=== PATIENT | female | born 1985 ===

== ENCOUNTER 2020-11-02 16:59 | Observation (INO) | payer OTHER ==
--- NOTE | 2020-11-02 18:00 | ED ---
General Adult HPI - General Chief complaint: Upper Respiratory Infection Stated complaint: COVID+ Time Seen by Provider: 11/02/20 17:00 Source: patient, EMS, old records reviewed Mode of arrival: EMS Limitations: no limitations - History of Present Illness Initial comments: Is a 35-year-old female with no past medical history who presents emergency department as a transfer from [facility] for abnormal computed tomography scan of the chest. The patient originally presented there for flulike symptoms for the last 5 days. The patient states that she's been having headaches, fevers and chills, sore throat, cough and some difficult he was breathing. She is unvaccinated for:. She presented to the emergency department [facility] where she was noted to be covert positive. She had a d-dimer that was elevated at 0.[address] angiogram was performed of her chest which showed findings that could be consistent with cold it or with septic emboli causing pneumonia. She was sent here for further evaluation of these findings. The patient states that she does not have any chest pain however has been having some difficulty with breathing. No nausea, vomiting or diarrhea. She otherwise states that she feels well. Blood work was reviewed from [facility] and did not show leukocytosis. Code was positive and d-dimer was mildly elevated. Respiratory blood work was unremarkable. Troponin was negative. - Related Data Home Medications Medication Instructions Recorded Confirmed Acetaminophen Tab [Tylenol] 650 mg PO Q4H PRN 11/02/20 11/02/20 Ibuprofen [Motrin Ib] 800 mg PO Q8H PRN 11/02/20 11/02/20 Allergies Allergy/AdvReac Type Severity Reaction Status Date / Time No Known Allergies Allergy Verified 11/02/20 17:21 Review of Systems ROS Statement: Those systems with pertinent positive or pertinent negative responses have been documented in the HPI. ROS Other: All systems not noted in ROS Statement are negative. Past Medical History Past Medical History: No Reported History History of Any Multi-Drug Resistant Organisms: None Reported Past Surgical History: Orthopedic Surgery Additional Past Surgical History / Comment(s): bilateral knee surgery, ACL, MCL, miniscus Past Psychological History: Bipolar, Depression, PTSD Smoking Status: Never smoker Past Alcohol Use History: Occasional Past Drug Use History: None Reported General Exam - General Exam Comments Initial Comments: Constitutional: Awake alert Appears comfortable Head: Normocephalic atraumatic Eyes: no conjunctival injection No scleral icterus EOMI Neck: No JVD Supple Heart: Regular rate rhythm normal S1-S2 no murmurs Lungs: Clear to auscultation bilaterally No wheezing No rales Abdomen: Soft nondistended nontender Extremities: Non edematous DP pulses intact Radial pulses intact Neuro: A&Ox3 No focal neurologic deficits Psych: Appropriate mood and affect Limitations: no limitations Course Vital Signs 11/02/20 17:13 Temperature 98.4 F Pulse Rate 69 Respiratory 16 Rate Blood Pressure 121/81 O2 Sat by Pulse 100 Oximetry - Reevaluation(s) Reevaluation #1: 11/02/20 17:[address] Fuentes regarding trying to get a stat echo done in the emergency department and possible discharge home with negative however he stated he would prefer to get blood cultures and echocardiogram revealed evaluate the patient and the morning. Patient we place in observation. Medical Decision Making - Medical Decision Making Is a 35-year-old female came for [facility] ER for an abnormal computed tomography scan showing possibility of septic emboli. No murmurs on exam.. Patient was afebrile. White count at [facility] was 4. I spoke with Dr. Fuentes who recommended echo in observation for his evaluation tomorrow. The patient was updated and agrees with plan of care. However I feel that the patient's findings are likely secondary to Covid pneumonia. Do not feel that she has endocarditis. We'll hold on antibiotics this time. Disposition Clinical Impression: COVID Disposition: ADMITTED IP TO THIS [facility] Condition: Stable Referrals: None,Stated [Primary Care Provider] - 1-2 days
[2020-11-02] MEDS ORDERED: NALOXONE 0.4 MG/ML 1 ML VIAL IV PRN (18:47)
[2020-11-02 19:25] LABS: Amphetamine Screen,Urine Not Detected (NotDetected); Barbiturate Screen,Urine Not Detected (NotDetected); Benzodiazepines Screen,Urine Not Detected (NotDetected); Cocaine Screen,Urine Not Detected (NotDetected); Methadone Screen, Urine Not Detected (NotDetected); Opiate Screen,Urine Not Detected (NotDetected); Phencyclidine Screen,Urine Not Detected (NotDetected); Tricyclic Antidepressant,Urine Not Detected (NotDetected); Urn Cannabinoid Scrn Not Detected (NotDetected)
[2020-11-02 19:26] LABS: Oxycodone Screen, Urine Not Detected (NotDetected)
[2020-11-02] MEDS: ACETAMINOPHEN TAB 325 MG TAB PO PRN (19:33)
--- NOTE | 2020-11-03 00:57 | P.HPIM ---
History of Present Illness H&P Date: 11/02/20 Chief Complaint: Covid positive 35-year-old female no significant past medical history Patient is a transfer from [facility] she went there today because of 5 day history of upper respiratory symptoms she described it like flulike symptoms generalized body aches with fevers chills headaches sore throat and coughing and shortness of breath she wanted to get tested for Covid so she went to the hospital and she positive. However she was not hypoxic denies any loss of smell or taste sensation denies any diarrhea denies any syncope or dizziness. Part of the workup she had a positive d-dimer for which CTA of the chest was done that showed nodular appearing infiltrates with central cavitation for which she was transferred to our facility to rule out any embolic vegetation disease Upon arrival to our ED her blood work was reviewed showed normal white count Covid positive d-dimer slightly elevated 0.56 Potassium was 3.8 lactic acid 0.7 troponins are negative Echocardiogram was done to see if there is any valvular vegetations or thrombus in the heart that would explain possible septic emboli to the lungs. However this will be read tomorrow by cardiology and patient was admitted for observation overnight Again upon interviewing the patient she feels fine at this time she is not hypoxic Urine drug screen was negative EKG showed normal sinus Patient denies any drug abuse smoking or excessive alcohol use Patient is unvaccinated Covid, she is unaware of any positive sick contact with Covid. She denies any recent travel Review of Systems Pertinent positives as noted in HPI. All other systems were reviewed and are negative Past Medical History Past Medical History: No Reported History History of Any Multi-Drug Resistant Organisms: None Reported Past Surgical History: Orthopedic Surgery Additional Past Surgical History / Comment(s): bilateral knee surgery, ACL, MCL, miniscus Past Psychological History: Bipolar, Depression, PTSD Smoking Status: Never smoker Past Alcohol Use History: Occasional Past Drug Use History: None Reported - Past Family History Family Family Medical History: No Reported History Medications and Allergies Home Medications Medication Instructions Recorded Confirmed Type Acetaminophen Tab [Tylenol] 650 mg PO Q4H PRN 11/02/20 11/02/20 History Ibuprofen [Motrin Ib] 800 mg PO Q8H PRN 11/02/20 11/02/20 History Allergies Allergy/AdvReac Type Severity Reaction Status Date / Time No Known Allergies Allergy Verified 11/02/20 17:21 Physical Exam Vitals: Vital Signs Temp Pulse Resp BP Pulse Ox 11/02/20 18:30 99.5 F 78 16 109/72 98 11/02/20 18:00 16 11/02/20 17:13 98.4 F 69 16 121/81 100 Intake and Output 11/02/20 11/02/20 11/02/20 06:59 14:59 22:59 Other: Weight 74.843 kg Constitutional: No acute distress, conversant, pleasant Eyes: Anicteric sclerae, moist conjunctiva, Pupils equal round reactive to light ENMT: NC/AT Oropharynx clear, no erythema, or exudates Neck: Supple, FROM, no masses, or JVD No carotid bruits No thyromegaly Lungs: Clear to auscultation Clear to percussion Normal respiratory effort, no accessory muscle use Cardiovascular: Heart regular in rate and rhythm, No murmurs, gallops, or rubs No peripheral edema Abdominal: Soft Nontender, no guarding, rebound or rigidity Abdomen moving with respiration Normoactive bowel sounds No hepatomegaly, No splenomegaly No palpable mass No abdominal wall hernia noted Skin: Normal temperature, tone, texture, turgor No induration No subcutaneous nodules No rash, lesions No ulcers Extremities: No digital cyanosis No clubbing Pedal pulses intact and symmetrical Radial pulses intact and symmetrical No calf tenderness Psychiatric: Alert and oriented to person, place and time Appropriate affect fair judgement Neuro Muscles Strength 5/5 in all 4 extremities Sensation to light touch grossly present throughout Cranial nerves II-XII grossly intact No focal sensory deficits Lymphatics: no palpable cervical or supraclavicular , or inguinal lymph nodes Assessment and Plan Assessment: COVID pneumonitis Monitor oxygen requirement currently patient not hypoxic Symptomatic control Heparin subcu 3 times a day Pain control with Tylenol Droplet precautions Troponins are negative Lactic acid within normal limits Check LDH, CRP, ferritin for prognostic evaluation CT of the chest showed nodular appearing infiltrates with central cavitation patient was transferred to our facility to rule out septic emboli Echocardiogram of the heart was done to rule out any thrombus or valvular vegetation Await cardiology input Continue supportive care Patient did not qualify for around a severe or dexamethasone Upon discharge monitor for any oxygen requirement at home if symptoms gets worse or becomes hypoxic consider returning to the hospital Thorough review of medical records sent from [facility] as summarized in HPI and above CODE STATUS: Full code DVT prophylaxis: Heparin subcu 3 times a day Discussed with: Patient, ER Anticipated length of stay less than than [address]: Home A total of 65minutes was spent on the care of this complex patient more than 50% of the time was spent in counseling and care coordination.
--- NOTE | 2020-11-03 07:30 | ECHOF ---
Referral Reason:Eval for endocarditis MEASUREMENTS -------- HEIGHT: 165.1 cm WEIGHT: 74.8 kg BP: 121/81 RVIDd: 2.9 cm (< 3.3) IVSd: 1.1 cm (0.6 - 1.1) LVIDd: 4.3 cm (3.9 - 5.3) LVPWd: 1.1 cm (0.6 - 1.1) IVSs: 1.6 cm LVIDs: 2.7 cm LVPWs: 1.5 cm LA Diam: 3.0 cm (2.7 - 3.8) LAESV Index (A-L): 18.34 ml/m Ao Diam: 3.5 cm (2.0 - 3.7) AV Cusp: 1.9 cm (1.5 - 2.6) MV EXCURSION: 13.784 mm (> 18.000) MV EF SLOPE: 62 mm/s (70 - 150) EPSS: 0.6 cm MV E Naren: 1.07 m/s MV DecT: 198 ms MV A Naren: 0.54 m/s MV E/A Ratio: 1.99 RAP: 5.00 mmHg RVSP: 23.03 mmHg FINDINGS -------- Sinus rhythm. This was a technically good study. The left ventricular size is normal. There is borderline concentric left ventricular hypertrophy. Overall left ventricular systolic function is normal with, an EF between 60 - 65 %. The right ventricle is normal in size. Normal LA size by volume 22+/-6 ml/m2. The right atrium is normal in size. Interatrial and interventricular septum intact. The aortic valve is trileaflet, and appears structurally normal. No aortic stenosis or regurgitation. The mitral valve is normal. Mild tricuspid regurgitation present. Right ventricular systolic pressure is normal at < 35 mmHg. Trace/mild (physiologic) pulmonic regurgitation. The aortic root size is normal. Normal inferior vena cava with normal inspiratory collapse consistent with estimated right atrial pre ssure of 5 mmHg. There is no pericardial effusion. CONCLUSIONS -------- 1. The left ventricular size is normal. 2. There is borderline concentric left ventricular hypertrophy. 3. Overall left ventricular systolic function is normal with, an EF between 60 - 65 %. 4. The aortic valve is trileaflet, and appears structurally normal. No aortic stenosis or regurgitati on. 5. Mild tricuspid regurgitation present. 6. Trace/mild (physiologic) pulmonic regurgitation. 7. There is no pericardial effusion. 8. No vegetations noted. CHEMIST INORGANIC: MARTY Yoo
[2020-11-03] MEDS ORDERED: HEPARIN SODIUM,PORCINE/PF 5,000 UNIT/0.5 ML SYRINGE SQ SCH (08:00)
[2020-11-03] MEDS: ACETAMINOPHEN TAB 325 MG TAB PO PRN (08:20)
--- NOTE | 2020-11-03 10:13 | P.CRDCN ---
History of Present Illness History of present illness: HISTORY OF PRESENTING ILLNESS This is a pleasant 35-year-old female with no significant past medical history. She denies prior history of coronary artery disease and does not follow in the office with a credentialer. We have been asked to see in consultation for abnormal computed tomography scan. She presented to [facility] with symptoms of fever, chills, cough and shortness of breath. She was subsequently diagnosed with COVID-19. She underwent a computed tomography scan revealing bilateral infiltrates with possible septic emboli. She was transferred here for further cardiac evaluation. An echocardiogram was obtained revealing preserved LV systolic function with ejection fraction 55-60% with no evidence of vegetation or pericardial effusions. She is seen and examined resting currently sitting up eating breakfast in no acute distress. She denies symptoms of chest discomfort. She continues to feel fatigued and short of breath. EKG reveals sinus mechanism heart rate of [address] or T wave abnormalities noted. Laboratory data reviewed, white count 4, hemoglobin 15, platelets 131, sodium 138, potassium 3.8 creatinine 0.6. REVIEW OF SYSTEMS At the time of my exam: CONSTITUTIONAL: Denies fever or chills. CARDIOVASCULAR: Denies chest pain, shortness of breath, orthopnea, PND or palpitations. RESPIRATORY: Denies cough. GASTROINTESTINAL: Denies abdominal pain, diarrhea, constipation, nausea or vomiting. MUSCULOSKELETAL: Denies myalgias. NEUROLOGIC: Denies numbness, tingling, headache or weakness. ENDOCRINE: Denies fatigue, weight change, polydipsia or polyurina. GENITOURINARY: Denies burning, hematuria or urgency with micturation. HEMATOLOGIC: Denies history of anemia or bleeding. PHYSICAL EXAMINATION Blood pressure 115/78 heart rate 68 afebrile and maintaining oxygen saturation on room air. CONSTITUTIONAL: No apparent distress. HEENT: Head is normocephalic. Pupils are equal, round. Sclerae anicteric. Mucous membranes of the mouth are moist. No JVD. No carotid bruit. CHEST EXAMINATION: Lungs are clear to auscultation. No chest wall tenderness is noted on palpation or with deep breathing. HEART EXAMINATION: Regular rate and rhythm. S1, S2 heard. No murmurs, gallops or rub. ABDOMEN: Soft, nontender. EXTREMITIES: 2+ peripheral pulses, no lower extremity edema and no calf tenderness. NEUROLOGIC EXAMINATION: Patient is awake, alert and oriented x3. ASSESSMENT COVID-19 Covid pneumonia PLAN No evidence to suggest endocarditis or pericarditis on echocardiogram. Ongoing medical management and treatment of underlying COVID-19. No further cardiac intervention required. We will follow along as needed, thank you kindly for this consultation. Nurse Practitioner note has been reviewed, I agree with a documented findings and plan of care. Patient was seen and examined. Past Medical History Past Medical History: No Reported History History of Any Multi-Drug Resistant Organisms: None Reported Past Surgical History: Orthopedic Surgery Additional Past Surgical History / Comment(s): bilateral knee surgery, ACL, MCL, miniscus Past Psychological History: Bipolar, Depression, PTSD Smoking Status: Never smoker Past Alcohol Use History: Occasional Past Drug Use History: None Reported - Past Family History Family Family Medical History: No Reported History Medications and Allergies Home Medications Medication Instructions Recorded Confirmed Type Acetaminophen Tab [Tylenol] 650 mg PO Q4H PRN 11/02/20 11/02/20 History Ibuprofen [Motrin Ib] 800 mg PO Q8H PRN 11/02/20 11/02/20 History Allergies Allergy/AdvReac Type Severity Reaction Status Date / Time No Known Allergies Allergy Verified 11/02/20 17:21 Physical Exam Vitals: Vital Signs Temp Pulse Resp BP Pulse Ox 11/03/20 08:22 68 18 115/78 98 11/03/20 06:38 18 11/03/20 05:30 18 11/03/20 04:10 99.0 F 73 18 114/73 98 11/03/20 00:20 98.0 F 70 18 116/74 98 11/02/20 18:30 99.5 F 78 16 109/72 98 11/02/20 18:00 16 11/02/20 17:13 98.4 F 69 16 121/81 100 Intake and Output 11/02/20 11/03/20 11/03/20 22:59 06:59 14:59 Other: Weight 74.843 kg Results Current Medications Generic Name Dose Route Start Last Admin Trade Name Freq PRN Reason Stop Dose Admin Acetaminophen 650 mg 11/02/20 18:47 11/03/20 08:20 Acetaminophen Tab 325 Mg Tab PO 650 mg Q6HR PRN Administration Mild Pain or Fever > 100.5 Heparin Sodium (Porcine) 5,000 unit 11/03/20 08:00 11/03/20 08:21 Heparin Sodium,Porcine/Pf 5,000 Unit/0.5 Ml Syringe SQ 5,000 unit Q8HR MAUREEN Administration Naloxone HCl 0.2 mg 11/02/20 18:47 Naloxone 0.4 Mg/Ml 1 Ml Vial IV Q2M PRN Opioid Reversal Intake and Output 11/02/20 11/03/20 11/03/20 22:59 06:59 14:59 Other: Weight 74.843 kg
[2020-11-03 11:13] LABS: Basophils # (A) 0.02 X 10*3/uL (0.00-0.10); Basophils % (A) 0.5 %; Eosinophils # (A) 0.02 X 10*3/uL (0.04-0.35); Eosinophils % (A) 0.5 %; HCT 42.5 % (37.2-46.3); HGB 13.8 g/dL (12.0-15.0); Lymphocytes # (A) 1.15 X 10*3/uL (0.90-5.00); Lymphocytes % (A) 30.1 %; MCHC 32.5 g/dL (32.0-37.0); MCV 95.5 fL (80.0-97.0); Mean Platelet Volume 12.2 fL (9.5-12.2); Monocytes # (A) 0.43 X 10*3/uL (0.20-1.00); Monocytes % (A) 11.3 %; Neutrophils # (A) 2.19 X 10*3/uL (1.80-7.70); Neutrophils % (A) 57.3 %; Platelet Count 112 X 10*3/uL (140-440); RBC 4.45 X 10*6/uL (4.10-5.20); WBC 3.82 X 10*3/uL (4.50-10.00)
[2020-11-03 12:38] VITALS: BP 116/87; PULSE 89; RESP 16; TEMP 98.2
[2020-11-03 13:50] LABS: Ferritin 355.7 ng/mL (10.0-291.0)
[2020-11-03 13:51] LABS: African American GFR (CKD) 137.8 (60.0-200.0); Albumin 3.7 g/dL (3.80-4.90); Albumin/Globulin Ratio 1.61 (1.60-3.17); Anion Gap 10.3 mmol/L (4.00-12.00); C Reactive Protein 2.2 mg/dL (0.0-0.8); Calcium 7.6 mg/dL (8.7-10.3); Carbon Dioxide 23.7 mmol/L (21.6-31.8); Globulin 2.3 g/dL (1.6-3.3); Non-African American GFR(CKD) 118.9 (60.0-200.0); Potassium 3.6 mmol/L (3.5-5.5); Total Bilirubin 0.3 mg/dL (0.3-1.2)
--- NOTE | 2020-11-03 15:25 | P.DS ---
Providers Date of admission: 11/02/20 18:48 Expected date of discharge: 11/03/20 Attending physician: Dedrick Hurtado MD Consults: 11/02/20 17:21 Consult Physician Routine Consulting Provider: Lazaro Yan Consult Reason/Comments: ?Endocarditis based on CT findings Do you want consulting provider notified?: Already Contacted Primary care physician: Stated None Hospital Course: COVID pneumonitis Cavitation in Lungs Patient was admitted with history of COVID due to findings of cavitation in lungs with concerns for septic emboli. Patient was not hypoxic, and had no s/s of acute infection. She was observed overnight with cardiology consult and echocardiogram. Echo did not show any evidence of vegitations. Cardiology cleared patient for discharge. BCx were drawn and pending at time of discharge. Pt d/c'd home with instructions to return to hospital if she becomes more short of breath, starts spiking fevers, or any other symptoms of concern for her. She was recommended to monitor oxygen level at home and to return if she became low in oxygen. Pt to quarantine at home given COVID + status. She will f/u with PCP. Assessment: Gen: awake, alert HEENT: normocephalic, atraumatic, good hearing acuity, moist mucous membranes Resp: good air exchange, breathing comfortably with no accessory muscle use CVS: good distal perfusion x 4, GI: soft, NTTP, ND : no SPT, no CVAT, groves catheter not present MSK: no pitting edema, no clubbing Neuro: non-focal, moving all extremities Psych: cooperative, euthymic mood Patient Condition at Discharge: Stable Plan - Discharge Summary New Discharge Prescriptions: Continue Acetaminophen Tab [Tylenol] 650 mg PO Q4H PRN PRN Reason: Fever Ibuprofen [Motrin Ib] 800 mg PO Q8H PRN PRN Reason: Fever Discharge Medication List Acetaminophen Tab [Tylenol] 650 mg PO Q4H PRN 11/02/20 [History] Ibuprofen [Motrin Ib] 800 mg PO Q8H PRN 11/02/20 [History] Follow up Appointment(s)/Referral(s): None,Stated [Primary Care Provider] - 1-2 days Patient Instructions/Handouts: Coronavirus Disease 2019 (COVID-19) Discharge Disposition: HOME SELF-CARE
== END 2020-11-03 12:38 | disposition home or self-care (01) ==
LOC: EC 16:59 → 6NMEDSUR 18:48
PROVIDERS: ADMIT Internal Medicine; ATTEND Internal Medicine
DX: U07.1 COVID-19 (principal); J12.82 Pneumonia due to coronavirus disease 2019; F32.9 Major depressive disorder, single episode, unspecified; F43.10 Post-traumatic stress disorder, unspecified; R93.1 Abnormal findings on diagnostic imaging of heart and coronary circulation
CPT/HCPCS: 99285; 96372; 36415; 93005; 93306; 80053; 82728; 83615; 85025; 86140; 81025; 87040; 80306; G0378 ×2; J1644

== ENCOUNTER → 2020-12-27 | Outpatient (CLI) | payer OTHER ==
--- NOTE | 2020-12-27 14:55 | XR ---
EXAMINATION TYPE: XR chest 2V DATE OF EXAM: 12/27/2020 COMPARISON: CTA chest 11/02/2020 HISTORY: Dyspnea TECHNIQUE: Frontal and lateral views of the chest are obtained. FINDINGS: There is no focal air space opacity, pleural effusion, or pneumothorax seen. The cardiac silhouette size is within normal limits. Metallic foreign body noted along the level of the cleavage The osseous structures are intact. IMPRESSION: No acute cardiopulmonary process. There has been interval improvement In the multifocal cavitary lesion seen within the lungs on previous exam suspicious for septic emboli .
== END | disposition home or self-care (01) ==
LOC: RADXRMAIN 12:07
PROVIDERS: ATTEND Physician Assistant
DX: R06.00 Dyspnea, unspecified (principal)
CPT/HCPCS: 71046

== ENCOUNTER 2021-07-13 17:19 | Emergency (ER) | payer OTHER ==
[2021-07-13 18:26] VITALS: BP 122/79; PULSE 72; RESP 16; TEMP 98.1
[2021-07-13 19:04] LABS: Basophils # (A) 0.1 k/uL (0-0.2); Basophils % (A) 1 %; Eosinophils # (A) 0.2 k/uL (0-0.7); Eosinophils % (A) 1 %; HCT 44.3 % (34.0-46.0); HGB 14.7 gm/dL (11.4-16.0); Lymphocytes # (A) 2.4 k/uL (1.0-4.8); Lymphocytes % (A) 16 %; MCH 33.6 pg (25.0-35.0); MCHC 33.3 g/dL (31.0-37.0); MCV 101.1 fL (80.0-100.0); Mean Platelet Volume 8.3; Monocytes # (A) 0.6 k/uL (0-1.0); Monocytes % (A) 4 %; Neutrophils # (A) 11.8 k/uL (1.3-7.7); Neutrophils % (A) 77 %; Platelet Count 292 k/uL (150-450); RBC 4.38 m/uL (3.80-5.40); RDW 12.8 % (11.5-15.5); WBC 15.3 k/uL (3.8-10.6)
[2021-07-13 19:11] LABS: ALT 34 U/L (4-34); AST 25 U/L (14-36); African American GFR (CKD) >90 (>60 ml/min/1.73 sqM); Albumin 4.3 g/dL (3.5-5.0); Alkaline Phosphatase 77 U/L (38-126); Anion Gap 7 mmol/L; Blood Urea Nitrogen 11 mg/dL (7-17); Calcium 8.9 mg/dL (8.4-10.2); Carbon Dioxide 25 mmol/L (22-30); Chloride 103 mmol/L (98-107); Glucose 88 mg/dL (74-99); Non-African American GFR(CKD) >90 (>60 ml/min/1.73 sqM); Potassium 3.9 mmol/L (3.5-5.1); Sodium 135 mmol/L (137-145); Total Bilirubin 0.4 mg/dL (0.2-1.3); Total Protein 7.5 g/dL (6.3-8.2)
== END 2021-07-13 23:22 | disposition left against medical advice (07) ==
LOC: EC 17:19
DX: Z53.21 Procedure and treatment not carried out due to patient leaving prior to being seen by health care provider (principal)
CPT/HCPCS: 36415; 80053; 81025; 85025; 99499

== ENCOUNTER 2022-02-22 06:15 | Inpatient (IN) | payer BC, OTHER ==
[2022-02-22] MEDS ORDERED: LIDOCAINE 0.5% (PF) 5 MG/ML (50 ML SDV) SQ PRN (06:41)
[2022-02-22] MEDS ORDERED: TERBUTALINE 1 MG/ML VIAL SQ PRN (06:41)
[2022-02-22] MEDS ORDERED: OXYTOCIN 30 UNITS/500 ML NS 30 UNIT in SALINE 1 500ML.BAG IV SCH ×2 (06:45→16:45)
[2022-02-22] MEDS: LACTATED RINGERS 1,000 ML IV SCH ×3 (06:56→13:07)
[2022-02-22 07:09] LABS: Basophils # (A) 0.1 k/uL (0-0.2); Basophils % (A) 0 %; Eosinophils # (A) 0.2 k/uL (0-0.7); Eosinophils % (A) 2 %; HCT 37.5 % (34.0-46.0); HGB 12.6 gm/dL (11.4-16.0); Lymphocytes # (A) 1.6 k/uL (1.0-4.8); Lymphocytes % (A) 14 %; MCH 31.3 pg (25.0-35.0); MCHC 33.7 g/dL (31.0-37.0); Mean Platelet Volume 10.4; Monocytes # (A) 0.5 k/uL (0-1.0); Monocytes % (A) 5 %; Neutrophils % (A) 77 %; Platelet Count 237 k/uL (150-450); RBC 4.03 m/uL (3.80-5.40); RDW 13.1 % (11.5-15.5); WBC 11.7 k/uL (3.8-10.6)
[2022-02-22] MEDS ORDERED: fentaNYL (PF) 50 MCG/ML 5 ML AMP ONE (11:06)
[2022-02-22] MEDS ORDERED: SODIUM CHLORIDE 0.9% 100 ML BAG ONE (11:06)
[2022-02-22] MEDS ORDERED: ROPIVACAINE 5 MG/ML 20 ML AMPULE ONE (11:06)
[2022-02-22] MEDS ORDERED: diphenhydrAMINE 25 MG CAP PO PRN (16:40)
[2022-02-22] MEDS ORDERED: HYDROCORTISONE 2.5% RECTAL CREAM 30 GM TUBE RECTAL PRN (16:40)
[2022-02-22] MEDS ORDERED: ZOLPIDEM 5 MG TAB PO PRN (16:40)
[2022-02-22] MEDS ORDERED: SIMETHICONE 80 MG CHEWABLE PO PRN (16:40)
[2022-02-22] MEDS ORDERED: BENZOCAINE/MENTHOL SPRAY 1 GM/SPRAY AEROSOL TOPICAL PRN (16:40)
[2022-02-22] MEDS ORDERED: ACETAMINOPHEN TAB 325 MG TAB PO PRN (16:40)
[2022-02-22] MEDS ORDERED: LANOLIN CREAM 5 GM TUBE TOPICAL PRN (16:40)
[2022-02-22] MEDS ORDERED: diphenhydrAMINE 50 MG CAP PO PRN (16:40)
[2022-02-22] MEDS ORDERED: diphenhydrAMINE 50 MG/ML 1 ML VIAL IVP PRN ×2 (16:40)
--- NOTE | 2022-02-22 16:44 | P.HPOB ---
History of Present Illness H&P Date: 02/22/22 Chief Complaint: IUP at 39 0/7 weeks This is a 36-year-old 3 para 1011 that presents for elective induction of labor. Patient has been receiving routine care with myself which is been essentially uncomplicated. Patient does have a history of depression and anxiety. Mental health has been stable throughout the . Patient does note good movement and occasional contraction. Patient denies loss of fluid or vaginal bleeding. On bloodwork this patient has a blood type of O+, rubella status nonimmune, hepatitis B surface antigen negative, HIV nonreactive, RPR is nonreactive, group beta strep cultures are negative. Review of Systems Constitutional: Denies chills, Denies fatigue, Denies fever Ears, nose, mouth and throat: Denies headache Cardiovascular: Reports leg edema Respiratory: Denies dyspnea Gastrointestinal: Denies nausea, Denies vomiting Genitourinary: Reports Past Medical History Past Medical History: No Reported History Additional Past Medical History / Comment(s): 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 History of Any Multi-Drug Resistant Organisms: None Reported Past Surgical History: Orthopedic Surgery Additional Past Surgical History / Comment(s): bilateral knee surgery, ACL, MCL, miniscus Past Anesthesia/Blood Transfusion Reactions: No Reported Reaction Past Psychological History: Bipolar, Depression, PTSD Smoking Status: Former smoker Past Alcohol Use History: Occasional Past Drug Use History: None Reported - Past Family History Family Family Medical History: No Reported History Medications and Allergies Home Medications Medication Instructions Recorded Confirmed Type Vit No.179/Iron/Folic 1 each PO 02/22/22 History [ Tablet] Sertraline [Zoloft] 50 02/22/22 History Allergies Allergy/AdvReac Type Severity Reaction Status Date / Time coconut Allergy Rash/Hives Verified 02/22/22 06:39 Exam Osteopathic Statement: *. No significant issues noted on an osteopathic structural exam other than those noted in the History and Physical/Consult. Vital Signs Temp Pulse Resp BP Pulse Ox 02/22/22 06:38 96.0 F L 91 16 134/87 93 L Intake and Output 02/22/22 02/22/22 02/22/22 06:59 14:59 22:59 Other: Weight 90.718 kg Targeted physical exam is performed in this date in general this is a well- nourished well-developed female in no acute distress, breathing is nonlabored heart has a regular rate and rhythm, abdomen is gravid and appropriate for gestational age, on cervical exam she is 1/70/-2 station amniotomy is performed and clear fluid is obtained. There noted to be category 1 and she is farrah every 2-3 minutes. Results Result Diagrams: 02/22/22 06:50 Abnormal Lab Results - Last 24 Hours (Table) 02/22/22 Range/Units 06:50 WBC 11.7 H (3.8-10.6) k/uL Neutrophils # 9.0 H (1.3-7.7) k/uL Assessment and Plan (1) Term Current Visit: Yes Status: Acute Code(s): Z34.90 - ENCNTR FOR SUPRVSN OF NORMAL , UNSP, UNSP TRIMESTER SNOMED Code(s): 45347393 Plan: 36-year-old 011 at 39-0/7 weeks, estimated due date of 03/01 presents for elective induction of labor. Patient is admitted and Pitocin induction of labor is begun per hospital protocol. Patient is offered options for analgesia including Stadol, nitrous, epidural. Patient will consider. Anticipate spontaneous vaginal delivery later today.
[2022-02-22] MEDS ORDERED: IBUPROFEN 600 MG TAB PO SCH (16:45)
--- NOTE | 2022-02-22 16:47 | P.PROBDLV ---
Vaginal Delivery Note - . Vaginal Delivery Note: 36-year-old 011 was admitted to labor and delivery today for elective induction of labor. She is admitted to labor and delivery for pitocin induction of labor. She underwent amniotomy and clear fluid was obtained. Patient progressed through labor eventually making minimal cervical change and requesting nitrous for pain control. Patient used nitrous for a short period was noted to make a small amount of cervical change and requested epidural. Epidural was placed without difficulty by the anesthesia department. Patient did progress to labor with category 2 heart tones on examination she was noted to be 7 cm which quickly progressed to complete. Patient was very comfortable with epidural with no urge to push. Patient labor down for a good amount of time eventually urge to push was felt and she began pushing. Patient began pushing and hands and knees secondary to variable decelerations and category 2 heart tones. Once patient was noted to be patient was placed on her back in a lithotomy position and with excellent maternal effort had a normal spontaneous vaginal delivery of a viable male at 1628, weight of 6 pounds 2.5 ounces. After two-minute delayed the umbo cord was doubly clamped and cut. The placenta was delivered spontaneously intact with three-vessel cord being noted. A spontaneous cry was noted at . Inspection the patient's vaginal vault no vaginal lacerations were appreciated. Uterus was noted to be firm and below the umbilicus. All counts were noted to be correct 2 at the end of the delivery. Patient and infant tolerated delivery well and are resting comfortably.
[2022-02-22] MEDS: IBUPROFEN 600 MG TAB PO PRN (18:11)
[2022-02-22] MEDS ORDERED: MEASLES-MUMPS-RUBELLA VACC/PF 12,500 UNIT/0.5 ML VIAL SQ ONE (19:05)
[2022-02-23] MEDS: IBUPROFEN 600 MG TAB PO PRN (00:26)
[2022-02-23] MEDS: SENNOSIDES-DOCUSATE SODIUM 1 EACH TAB PO SCH ×3 (05:10→22:48)
--- NOTE | 2022-02-23 09:01 | P.DS ---
Providers Date of admission: 02/22/22 06:16 Expected date of discharge: 02/23/22 Attending physician: Lona Singh Primary care physician: Stated None - Discharge Diagnosis(es) (1) Term Current Visit: Yes Status: Acute (2) Status post vaginal delivery Current Visit: Yes Status: Acute Hospital Course: This is a 36-year-old G3 now P2012 that presented to labor and delivery for elective induction of labor at 39 weeks of gestation. Patient receiving routine care which has been essentially uncomplicated. Patient was admitted and Pitocin induction of labor was begun. Patient underwent amniotomy and clear fluid was obtained. Patient progressed through labor eventually using nitrous for pain control. Subsequently patient did request epidural placement. Epidural was placed without difficulty by the anesthesia department. Patient made progress towards complete and with urge began to push. Patient underwent a normal spontaneous vaginal delivery of a viable male infant at 1628, weight of 6 pounds 2.5 ounces. No vaginal lacerations were appreciated during delivery. Patient's course has been uneventful. On this day #1 she is ambulating and voiding without difficulty. She is tolerating a regular diet without nausea or vomiting. She states her lochia is moderate. She would like discharge home later today if possible. Patient Condition at Discharge: Good Plan - Discharge Summary New Discharge Prescriptions: No Action Vit No.179/Iron/Folic [ Tablet] 1 each PO Sertraline [Zoloft] 50 Discharge Medication List Vit No.179/Iron/Folic [ Tablet] 1 each PO 02/22/22 [History] Sertraline [Zoloft] 50 02/22/22 [History] Follow up Appointment(s)/Referral(s): Lona Singh DO [Doctor of Osteopathic Medicine] - 2 Weeks Patient Instructions/Handouts: Vaginal Delivery (DC), Vaginal Delivery (GEN) Discharge Disposition: HOME SELF-CARE
[2022-02-23] MEDS: PRENATAL VIT-IRON-FOLIC ACID 1 EACH TABLET PO SCH (10:33)
[2022-02-23 17:16] VITALS: RESP 16
[2022-02-24] MEDS: IBUPROFEN 600 MG TAB PO PRN ×3 (00:48→15:59)
--- NOTE | 2022-02-24 07:56 | P.PNOBGVD ---
Subjective - Subjective Principal diagnosis: Normal Vaginal Delivery Interval history: The patient is doing well this morning and had no acute events overnight. She has no complaints this morning. She reports minimal lochia, passing flatus, voiding without difficulty, ambulating, and eating/drinking without nausea or vomiting. She is her without difficulty. She requests a breast pump prescription today. She denies chest pain, shortness of breathing, fevers, or chills overnight. She denies pain or swelling in the legs. Patient reports: Reports appetite normal, Reports voiding normally, Reports pain well controlled, Reports ambulating normally Sallis: doing well, nursing well Objective - Latest Vital Signs Latest vital signs: Vital Signs Temp Pulse Resp BP Pulse Ox 02/24/22 01:00 98.4 F 65 16 126/81 98 02/23/22 17:14 98.1 F 75 16 119/73 02/23/22 09:00 97.8 F 80 14 127/82 - Exam Extremities: Present: normal Abdomen: Present: normal appearance, soft Uterus: Present: normal, firm Assessment and Plan Assessment: 36 y/o now PPD#2 s/p NVD Plan: Patient meeting milestones appropriately, male doing well s/p circumcision. Will discharge to home today.
[2022-02-24] MEDS: PRENATAL VIT-IRON-FOLIC ACID 1 EACH TABLET PO SCH (08:08)
[2022-02-24] MEDS: SENNOSIDES-DOCUSATE SODIUM 1 EACH TAB PO SCH (08:09)
[2022-02-24 13:00] VITALS: BP 125/71; PULSE 70; TEMP 98.2
== END 2022-02-24 15:59 | disposition home or self-care (01) | DRG 807 ==
LOC: 4FBP 06:16
PROVIDERS: ADMIT Obstetrics & Gynecology Obstetrics; ATTEND Obstetrics & Gynecology Obstetrics
PROC: 10907ZC Drainage of Amniotic Fluid, Therapeutic from Products of Conception, Via Natural or Artificial Opening (ICD-10-PCS; principal; 2022-02-22)
PROC: 10E0XZZ Delivery of Products of Conception, External Approach (ICD-10-PCS; principal; 2022-02-22)
PROC: 3E033VJ Introduction of Other Hormone into Peripheral Vein, Percutaneous Approach (ICD-10-PCS; principal; 2022-02-22)
PROC: 3E0134Z Introduction of Serum, Toxoid and Vaccine into Subcutaneous Tissue, Percutaneous Approach (ICD-10-PCS; 2022-02-23)
DX: O76 Abnormality in fetal heart rate and rhythm complicating labor and delivery (principal); O99.344 Other mental disorders complicating childbirth; F43.10 Post-traumatic stress disorder, unspecified; F41.9 Anxiety disorder, unspecified; F31.9 Bipolar disorder, unspecified; Z86.16 Personal history of COVID-19; Z87.891 Personal history of nicotine dependence; Z79.899 Other long term (current) drug therapy; Z28.310 Unvaccinated for COVID-19; Z23 Encounter for immunization; Z3A.39 39 weeks gestation of pregnancy; Z37.0 Single live birth
CPT/HCPCS: 85025; 86850; 86900; 86901; 90707

== ENCOUNTER 2022-06-25 15:38 | Inpatient (IN) | payer BC ==
[2022-06-25] MEDS ORDERED: VANCOMYCIN 1,500 MG in SODIUM CHLORIDE 0.9% 500 ML 500 ML IVPB ONE (16:30)
[2022-06-25] MEDS ORDERED: VANCOMYCIN 0 MG in SODIUM CHLORIDE 0.9% 250 ML IVPB SCH (16:30)
[2022-06-25] MEDS ORDERED: ACETAMINOPHEN TAB 500 MG TAB PO PRN (16:43)
[2022-06-25 17:18] LABS: Basophils # (A) 0.1 k/uL (0-0.2); Basophils % (A) 1 %; Eosinophils # (A) 0.1 k/uL (0-0.7); Eosinophils % (A) 0 %; HCT 42.3 % (34.0-46.0); Lymphocytes # (A) 1.2 k/uL (1.0-4.8); Lymphocytes % (A) 8 %; MCH 31.7 pg (25.0-35.0); MCHC 33.2 g/dL (31.0-37.0); MCV 95.6 fL (80.0-100.0); Mean Platelet Volume 7.7; Monocytes # (A) 0.6 k/uL (0-1.0); Monocytes % (A) 4 %; Neutrophils # (A) 13.1 k/uL (1.3-7.7); Neutrophils % (A) 86 %; Platelet Count 336 k/uL (150-450); RBC 4.43 m/uL (3.80-5.40); RDW 12.1 % (11.5-15.5); WBC 15.3 k/uL (3.8-10.6)
--- NOTE | 2022-06-25 17:23 | US ---
EXAMINATION TYPE: US extremity nonvasc mass RT DATE OF EXAM: 06/25/2022 COMPARISON: NONE CLINICAL INDICATION: Female, 36 years old with history of assess for abscess on right vulva and butto cks; From right vulva to buttocks red and swollen. Pain. TECHNIQUE: FINDINGS: Scanned right vulva to buttocks area of pain and swelling. No fluid visualized. Consider cellulitis in the differential. IMPRESSION: No discrete cystic or solid mass is identified during the ultrasound to account for rhonda ent findings.
[2022-06-25] MEDS: LACTATED RINGERS 1,000 ML IV SCH (17:27)
[2022-06-25] MEDS: Acetaminophen-Codeine 300-30mg TAB PO PRN (17:33)
[2022-06-25 17:35] LABS: ALT 22 U/L (4-34); AST 19 U/L (14-36); African American GFR (CKD) >90 (>60 ml/min/1.73 sqM); Albumin 3.8 g/dL (3.5-5.0); Alkaline Phosphatase 111 U/L (38-126); Anion Gap 11 mmol/L; Blood Urea Nitrogen 9 mg/dL (7-17); Calcium 8.8 mg/dL (8.4-10.2); Carbon Dioxide 25 mmol/L (22-30); Chloride 99 mmol/L (98-107); Glucose 84 mg/dL (74-99); Non-African American GFR(CKD) >90 (>60 ml/min/1.73 sqM); Potassium 4.7 mmol/L (3.5-5.1); Sodium 135 mmol/L (137-145); Total Bilirubin 0.3 mg/dL (0.2-1.3); Total Protein 7.4 g/dL (6.3-8.2)
--- NOTE | 2022-06-25 17:58 | P.HPOB ---
History of Present Illness H&P Date: 06/25/22 Chief Complaint: Pain and swelling right vulva and buttock This is a 36-year-old female 4 para 20-2 who presents with an increasingly painful red and swollen white vulva and buttock. Patient states this began approximately 8 days ago. She went to urgent care locally in [facility] 5 days ago, was placed on Keflex 500 mg 4 times a day and Bactrim 2 pills twice a day. However, since that time the area has become increasingly red swollen and painful. Patient now was not able to sit or bend over. She presented to the office as a "walk-in". Her physician of record is not available as Dr. Coto is out of town. I saw the patient in the office and diagnosed right buttock and vulvar cellulitis. Patient was sent for direct admission to the hospital. ALLERGIES none known. Current medications Bactrim and Keflex as above. Family history significant for breast cancer, diabetes, hypertension, leukemia, ovarian cancer. Patient's father with leukemia was diagnosed with a MRSA infection of his axillary area today. Past medical history is significant for anxiety, bipolar disorder, and PTSD. Past surgical history knee surgeries bilaterally. Reproductive history normal spontaneous vaginal delivery 07/05/2011, and 02/22/2022, both healthy full-term deliveries. Social history patient is a former marijuana and tobacco smoker. She is single and works for the [employer] in [facility]. On exam patient is 5 foot 5 inches, 182, temperature 98.5, pulse 73, respirations 17, blood pressure 114/71, 98% O2 saturation on room air. The general physical exam is within normal limits. The chest is clear in all dover. Cardiac exam reveals regular rate and rhythm with no murmur. Breasts are bilaterally engorged with milk as patient has a 4 month old at home. Abdomen is soft and nontender. Extremities reveal no edema. Good range of m otion noted. On examination of the vulva father is a proximally 20 cm intrauterine posteriorly and 78 cm laterally area of angry red tense woody inflamed tissue involving the right vulva and upper buttock area. Ultrasound reveals no evidence of cystic or solid mass, no evidence of underlying abscess. Vancomycin 1500 mg is currently running over 3 hours, ordered an pharmacy dosing to follow. WBCs 15.3, hemoglobin 14.0, hematocrit 42.3, platelets 336,000. The general chemistry panel is within normal limits. Impression: Large tense exquisitely tender cellulitis of the right vulva and upper buttock region. No sonographic evidence of underlying abscess. Failed outpatient treatment with Keflex and Bactrim over the past 5 days. Positive family history of active MRSA infection. Plan: Vancomycin with pharmacy dosing to follow. Infectious disease consult regarding possible addition of gentamicin. Repeat CBC in the morning. Patient is being transferred to room 479 on a medical surgical floor at this time. 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 History of Any Multi-Drug Resistant Organisms: None Reported Past Surgical History: Orthopedic Surgery Additional Past Surgical History / Comment(s): bilateral knee surgery, ACL, MCL, miniscus Past Anesthesia/Blood Transfusion Reactions: No Reported Reaction Past Psychological History: Bipolar, Depression, PTSD Smoking Status: Former smoker Past Alcohol Use History: Occasional Past Drug Use History: None Reported - Past Family History Family Family Medical History: No Reported History Medications and Allergies Home Medications Medication Instructions Recorded Confirmed Type Vit No.179/Iron/Folic 1 each PO 02/22/22 History [ Tablet] Sertraline [Zoloft] 50 02/22/22 History Acetaminophen Tab [Tylenol] 650 mg PO Q6H PRN #30 tab 02/24/22 Rx Ibuprofen [Motrin] 600 mg PO Q8HR PRN #30 tab 02/24/22 Rx Allergies Allergy/AdvReac Type Severity Reaction Status Date / Time coconut Allergy Rash/Hives Verified 06/25/22 16:17 Exam Vital Signs Temp Pulse Resp BP Pulse Ox 06/25/22 16:28 98.5 F 73 17 114/71 98 Intake and Output 06/25/22 06/25/22 06/25/22 06:59 14:59 22:59 Other: Weight 82.554 kg See dictation under HPI please Results Result Diagrams: 06/25/22 16:52 06/25/22 16:52 Abnormal Lab Results - Last 24 Hours (Table) 06/25/22 06/25/22 Range/Units 16:52 16:52 WBC 15.3 H (3.8-10.6) k/uL Neutrophils # 13.1 H (1.3-7.7) k/uL Sodium 135 L (137-145) mmol/L Assessment and Plan Assessment: 20 cm x 7 cm right buttocks/vulvar cellulitis. Vancomycin currently being infused. Positive family history of MRSA, active infection. Plan: Appreciate infectious disease consultation regarding the possible addition of gentamicin. Continue vancomycin per pharmacy dosing. Repeat CBC in the morning. Time with Patient: Greater than 30
[2022-06-26] MEDS: Acetaminophen-Codeine 300-30mg TAB PO PRN (04:09)
[2022-06-26] MEDS: VANCOMYCIN 1,500 MG in SODIUM CHLORIDE 0.9% 500 ML 500 ML IVPB SCH ×2 (04:10→17:55)
--- NOTE | 2022-06-26 07:56 | P.PN ---
Subjective Progress Note Date: 06/26/22 Principal diagnosis: Right vulvar/cellulitis Patient complaining of sweats and chills. No improvement of right perineal symptoms. Objective - Vital Signs Vital signs: Vital Signs Temp 97.9 F 06/26/22 01:56 Pulse 69 06/26/22 01:56 Resp 16 06/26/22 01:56 BP 101/63 06/26/22 01:56 Pulse Ox 97 06/26/22 01:56 FiO2 Intake & Output 06/25/22 06/26/22 06/26/22 18:59 06:59 18:59 Weight 82.554 kg Other: # Voids 1 2 - Constitutional General appearance: Present: average body habitus, cooperative - EENT Eyes: Present: PERRLA ENT: Present: hearing grossly normal - Neck Neck: Present: normal ROM Thyroid: bilateral: normal size - Respiratory Respiratory: bilateral: CTA - Cardiovascular Rhythm: regular - Gastrointestinal General gastrointestinal: Present: normal bowel sounds - Genitourinary Genitourinary Comment(s): Right vulvar/cellulitis unchanged, approximately 18-20 cm x 7-8 cm. Tense, woody, exquisitely tender. - Integumentary Integumentary: Present: normal - Neurologic Neurologic: Present: CNII-XII intact - Musculoskeletal Musculoskeletal: Present: gait normal - Psychiatric Psychiatric: Present: A&O x's 3, appropriate affect, intact judgment & insight - Labs CBC & Chem 7: 06/25/22 16:52 06/25/22 16:52 Labs: Abnormal Lab Results - Last 24 Hours (Table) 06/25/22 06/25/22 Range/Units 16:52 16:52 WBC 15.3 H (3.8-10.6) k/uL Neutrophils # 13.1 H (1.3-7.7) k/uL Sodium 135 L (137-145) mmol/L Assessment and Plan Assessment: Right buttock/vulvar cellulitis, positive family history of MRSA infection. Plan: Continue vancomycin 1500 mg IV piggyback every 12 hours. Await infectious disease consult regarding possible addition of gentamicin or other second agent. CBC this morning. Regular diet. Time with Patient: Less than 30
[2022-06-26 08:09] LABS: Basophils % (A) 0 %; Eosinophils # (A) 0.1 k/uL (0-0.7); Eosinophils % (A) 1 %; HGB 13.1 gm/dL (11.4-16.0); Lymphocytes # (A) 1.2 k/uL (1.0-4.8); Lymphocytes % (A) 9 %; MCH 31.3 pg (25.0-35.0); MCHC 32.8 g/dL (31.0-37.0); MCV 95.4 fL (80.0-100.0); Mean Platelet Volume 7.9; Monocytes # (A) 0.6 k/uL (0-1.0); Monocytes % (A) 4 %; Neutrophils # (A) 10.9 k/uL (1.3-7.7); Neutrophils % (A) 84 %; Platelet Count 321 k/uL (150-450); RDW 12.2 % (11.5-15.5)
[2022-06-26 08:35] LABS: African American GFR (CKD) >90 (>60 ml/min/1.73 sqM); Anion Gap 8 mmol/L; Blood Urea Nitrogen 7 mg/dL (7-17); Calcium 8.1 mg/dL (8.4-10.2); Carbon Dioxide 24 mmol/L (22-30); Chloride 104 mmol/L (98-107); Glucose 101 mg/dL (74-99); Non-African American GFR(CKD) >90 (>60 ml/min/1.73 sqM); Potassium 4.4 mmol/L (3.5-5.1); Sodium 136 mmol/L (137-145)
[2022-06-26 09:32] LABS: C Reactive Protein 16.6 mg/dL (<1.0)
[2022-06-26] MEDS: HYDROcodone/APAP 5-325MG 1 EACH TAB PO PRN ×4 (09:50→16:54)
[2022-06-26] MEDS: CEFEPIME 2 GM in SODIUM CHLORIDE 0.9% 100 ML IVPB SCH ×2 (12:25→22:34)
--- NOTE | 2022-06-26 13:05 | P.CONS ---
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 [employer], patient started having painful lump to the right gluteal area about 8 or 10 days ago patient thought it was a pulled muscle subsequently noticed increasing pain and swelling describes the pain to be sharp almost 10 out of 10 in severity without any radiation and there is no drainage, patient went to local urgent care the patient started on Bactrim DS and Keflex patient mention she started feeling better over the weekend and went to work, h owever yesterday after admitted the patient was to have excruciating pain to the area for the patient was evaluated by her [employer] patient has been diagnosed with a cellulitis on the right gluteal and vulva area, patient did have elevated white count of 15.3 at admission, kidneys was normal patient started on vancomycin infectious disease consulted for further management, I did review her chart pending evaluations morning blood cultures obtained and repeat blood work for this morning, at the time earlier this morning patient getting of more swelling to the right labia area the pain has been getting worse this morning did complain of sharp pain almost 8 out of 10 with no radiation is noted, pa tient currently came down to 13,000 the patient has been afebrile since admission Review of Systems Positive point has been mentioned in the HPI rest of the systems are negative Past Medical History Past Medical History: No Reported History Additional Past Medical History / Comment(s): 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 History of Any Multi-Drug Resistant Organisms: None Reported Past Surgical History: Orthopedic Surgery Additional Past Surgical History / Comment(s): bilateral knee surgery, ACL, MCL, miniscus Past Anesthesia/Blood Transfusion Reactions: No Reported Reaction Past Psychological History: Bipolar, Depression, PTSD Smoking Status: Former smoker Past Alcohol Use History: Occasional Past Drug Use History: None Reported - Past Family History Father Family Medical History: Cancer Additional Family Medical History / Comment(s): Leukemia, Family Family Medical History: No Reported History Medications and Allergies Home Medications Medication Instructions Recorded Confirmed Type Sertraline [Zoloft] 50 mg PO DAILY 02/22/22 06/26/22 History Cephalexin [Keflex] 500 mg PO QID 06/26/22 06/26/22 History Sulfamethox-Tmp 800-160Mg [Bactrim 2 tab PO BID 06/26/22 06/26/22 History DS 800-160 mg] Allergies Allergy/AdvReac Type Severity Reaction Status Date / Time coconut Allergy Rash/Hives Verified 06/26/22 06:40 Physical Exam Vitals: Vital Signs Temp Pulse Resp BP Pulse Ox 06/26/22 10:09 75 16 06/26/22 07:28 98.1 F 75 16 101/64 97 06/26/22 01:56 97.9 F 69 16 101/63 97 06/25/22 19:13 98.0 F 82 16 106/68 96 06/25/22 16:28 98.5 F 73 17 114/71 98 Intake and Output 06/25/22 06/26/22 06/26/22 22:59 06:59 14:59 Other: # Voids 1 2 Weight 82.554 kg GENERAL DESCRIPTION: Middle-aged female lying in bed, no distress. No tachypnea or accessory muscle of respiration use. HEENT: Shows Pallor , no scleral icterus. Oral mucous membrane is dry. NECK: Trachea central, no thyromegaly. LUNGS: Unlabored breathing. Clear to auscultation anteriorly. No wheeze or crackle. HEART: S1, S2, regular rate and rhythm. No loud murmur ABDOMEN: Soft, no tenderness , guarding or rigidity, no organomegaly : Patient was examined with the nurse did have a significant swelling or tenderness induration to the right gluteal and significant swelling of the right labia tender to touch EXTREMITIES: No edema of feet. SKIN: No rash, no masses palpable. NEUROLOGICAL: The patient is awake, alert, oriented x3, mood and affect normal. Results CBC & Chem 7: 06/26/22 07:25 06/26/22 07:25 Labs: Abnormal Lab Results - Last 24 Hours (Table) 06/25/22 06/25/22 06/26/22 Range/Units 16:52 16:52 07:25 WBC 15.3 H 13.0 H (3.8-10.6) k/uL Neutrophils # 13.1 H 10.9 H (1.3-7.7) k/uL Sodium 135 L (137-145) mmol/L Glucose (74-99) mg/dL Calcium (8.4-10.2) mg/dL C-Reactive Protein (<1.0) mg/dL 06/26/22 Range/Units 07:25 WBC (3.8-10.6) k/uL Neutrophils # (1.3-7.7) k/uL Sodium 136 L (137-145) mmol/L Glucose 101 H (74-99) mg/dL Calcium 8.1 L (8.4-10.2) mg/dL C-Reactive Protein 16.6 H (<1.0) mg/dL Assessment and Plan (1) Cellulitis, gluteal, right Current Visit: Yes Status: Acute Code(s): L03.317 - CELLULITIS OF BUTTOCK SNOMED Code(s): 02290144 (2) Vulvar cellulitis Current Visit: Yes Status: Acute Code(s): N76.2 - ACUTE VULVITIS SNOMED Code(s): 933552631 Plan: 1-Patient with right gluteal and right labial cellulitis in this patient mentions some improvement with the Bactrim and Keflex likely pointing towards possible staphylococcal infection with some of the worsening could be related to development of an abscess and the patient will benefit from drainage that will help release the pressure and give us a sample for microbiological diagnosis, this was discussed in detail with the patient admitting physician who will be evaluating the patient this afternoon 2-Vancomycin pharmacy to dose target trough of 15 while watching kidney function and Vanco trough closely 3-we will add cefepime for gram-negative coverage while waiting for the cultures to finalize We will follow on clinical condition and cultures to further adjust medication if needed Thank you for this consultation will follow this patient with you Time with Patient: Less than 30
--- NOTE | 2022-06-26 13:10 | P.PCN ---
Date of Procedure: 06/26/22 Preoperative Diagnosis: Right buttock and labial cellulitis, possible fluid collection Postoperative Diagnosis: Same Procedure(s) Performed: Aspiration right labial edema Anesthesia: local, none Surgeon: Serenity Person Estimated Blood Loss (ml): 5 IV fluids (ml): 0 Urine output (ml): 0 Pathology: other (Aerobic and anaerobic culture swabs) Condition: stable Disposition: no change Description of Procedure: After informed consent is reviewed signed witnessed and dated, patient is placed in an exaggerated lithotomy position. The right labia is prepped with Betadine. A large-bore needle is inserted into the right labial edema with a syringe. Attempt at aspiration does not procure any fluid or purulence. Upon removing the needle, there is a bloody discharge which is then cultured with aerobic and anaerobic swabs. Patient tolerated the procedure well. Estimated blood loss 5 mL. Light dressing applied.
[2022-06-26] MEDS: LACTATED RINGERS 1,000 ML IV SCH (17:54)
[2022-06-26] MEDS: HYDROmorphone 1 MG/ML 1 ML SYRINGE IVP PRN (21:02)
[2022-06-26] MEDS: KETOROLAC 15 MG/ML 1 ML VIAL IVP SCH (22:34)
[2022-06-27] MEDS: KETOROLAC 15 MG/ML 1 ML VIAL IVP SCH (01:12)
[2022-06-27] MEDS: HYDROmorphone 1 MG/ML 1 ML SYRINGE IVP PRN ×4 (01:18→19:56)
[2022-06-27] MEDS: KETOROLAC 15 MG/ML 1 ML VIAL IVP PRN ×2 (03:51→19:49)
[2022-06-27] MEDS: VANCOMYCIN 1,500 MG in SODIUM CHLORIDE 0.9% 500 ML 500 ML IVPB SCH ×2 (03:52→17:56)
[2022-06-27] MEDS: HYDROcodone/APAP 5-325MG 1 EACH TAB PO PRN ×2 (03:52→14:47)
--- NOTE | 2022-06-27 06:31 | P.PN ---
Subjective Progress Note Date: 06/27/22 Principal diagnosis: Right buttock/vulvar cellulitis Still complaining of night sweats. Lesion subjectively unchanged. Objective - Vital Signs Vital signs: Vital Signs Temp 98.1 F 06/27/22 02:00 Pulse 65 06/27/22 02:00 Resp 18 06/26/22 20:00 BP 110/69 06/27/22 02:00 Pulse Ox 98 06/27/22 02:00 FiO2 Intake & Output 06/26/22 06/26/22 06/27/22 06:59 18:59 06:59 Intake Total 2160 Balance 2160 Intake: Oral 2160 Other: # Voids 2 3 3 - Constitutional General appearance: Present: average body habitus, cooperative - EENT Eyes: Present: PERRLA ENT: Present: hearing grossly normal - Neck Neck: Present: normal ROM - Respiratory Respiratory: bilateral: CTA - Cardiovascular Rhythm: regular - Gastrointestinal General gastrointestinal: Present: normal bowel sounds - Genitourinary Genitourinary Comment(s): Continued erythema, edema, exquisite pain in the right buttock and perineal area. Right labia distended. Small area consistent with possible superficial pruritus noted. Minimal objective improvement. - Integumentary Integumentary: Present: normal - Neurologic Neurologic: Present: CNII-XII intact - Musculoskeletal Musculoskeletal: Present: gait normal - Psychiatric Psychiatric: Present: A&O x's 3, appropriate affect, intact judgment & insight - Labs CBC & Chem 7: 06/26/22 07:25 06/26/22 07:25 Labs: Abnormal Lab Results - Last 24 Hours (Table) 06/26/22 06/26/22 Range/Units 07:25 07:25 WBC 13.0 H (3.8-10.6) k/uL Neutrophils # 10.9 H (1.3-7.7) k/uL Sodium 136 L (137-145) mmol/L Glucose 101 H (74-99) mg/dL Calcium 8.1 L (8.4-10.2) mg/dL C-Reactive Protein 16.6 H (<1.0) mg/dL Microbiology - Last 24 Hours (Table) 06/25/22 22:12 Blood Culture - Preliminary Blood No Growth after 24 hours 06/26/22 13:00 Anaerobic Culture - Preliminary Vulva 06/26/22 13:00 Wound Culture - Preliminary Other - Other Assessment and Plan Assessment: Cellulitis right buttock and vulvar area. Exquisite pain Plan: Continue diet ligated and or [place] as needed. Continue vancomycin and cephalosporin. Attempt at aspiration yesterday, cultures pending. Time with Patient: Less than 30
[2022-06-27] MEDS: CEFEPIME 2 GM in SODIUM CHLORIDE 0.9% 100 ML IVPB SCH ×3 (06:43→21:51)
[2022-06-27 06:49] LABS: Basophils % (A) 0 %; Eosinophils # (A) 0.2 k/uL (0-0.7); Eosinophils % (A) 1 %; HCT 41.1 % (34.0-46.0); HGB 13.4 gm/dL (11.4-16.0); Lymphocytes # (A) 1.4 k/uL (1.0-4.8); Lymphocytes % (A) 10 %; MCH 31.6 pg (25.0-35.0); MCHC 32.6 g/dL (31.0-37.0); MCV 96.9 fL (80.0-100.0); Mean Platelet Volume 7.7; Monocytes # (A) 0.6 k/uL (0-1.0); Monocytes % (A) 4 %; Neutrophils # (A) 11.9 k/uL (1.3-7.7); Neutrophils % (A) 83 %; Platelet Count 311 k/uL (150-450); RBC 4.24 m/uL (3.80-5.40); RDW 12.1 % (11.5-15.5); WBC 14.2 k/uL (3.8-10.6)
[2022-06-27 11:26] LABS: African American GFR (CKD) 135.5 (60.0-200.0); BUN/Creat Ratio 10.94 Ratio (12.00-20.00); Blood Urea Nitrogen 6.8 mg/dL (9.0-27.0); C Reactive Protein 15.1 mg/dL (0.00-0.80); Calcium 8.4 mg/dL (8.7-10.3); Carbon Dioxide 23.5 mmol/L (20.0-27.5); Non-African American GFR(CKD) 116.9 (60.0-200.0); Potassium 4.3 mmol/L (3.5-5.5)
--- NOTE | 2022-06-27 15:08 | P.PN ---
Subjective Progress Note Date: 06/27/22 Principal diagnosis: Right gluteal and labial abscess Patient is a 36-year-old female presented to hospital with extensive pain to the right gluteal and lateral area has been diagnosed with the abscess patient did have an attempt at bedside aspirate on 06/26/2022, with no significant output patient subsequently did have spontaneous drainage. On today's evaluation that is 06/27/2022, the patient denies having any fever or any chills, the patient pain to the right labia as well as gluteal area has decreased in intensity, patient denies having any chest pain or shortness of cough no abdominal pain or diarrhea Objective - Vital Signs Vital signs: Vital Signs Temp 98.0 F 06/27/22 07:51 Pulse 66 06/27/22 07:51 Resp 18 06/27/22 07:51 BP 105/67 06/27/22 07:51 Pulse Ox 96 06/27/22 07:51 FiO2 Intake & Output 06/26/22 06/27/22 06/27/22 18:59 06:59 18:59 Intake Total 2160 Balance 2160 Intake: Oral 2160 Other: # Voids 3 3 - Exam GENERAL DESCRIPTION: A middle-age female lying in bed in no distress RESPIRATORY SYSTEM: Unlabored breathing , decreased breath sounds at bases HEART: S1 S2 regular rate and rhythm , ABDOMEN: Soft , no tenderness : Right labial swelling has decreased she was noticed to have minimal drainage was cultured - Labs CBC & Chem 7: 06/27/22 05:47 06/27/22 05:47 Labs: Abnormal Lab Results - Last 24 Hours (Table) 06/27/22 06/27/22 Range/Units 05:47 05:47 WBC 14.2 H (3.8-10.6) k/uL Neutrophils # 11.9 H (1.3-7.7) k/uL Anion Gap 9.00 L (10.00-18.00) mmol/L BUN 6.8 L (9.0-27.0) mg/dL BUN/Creatinine Ratio 10.94 L (12.00-20.00) Ratio Calcium 8.4 L (8.7-10.3) mg/dL C-Reactive Protein 15.10 H (0.00-0.80) mg/dL Microbiology - Last 24 Hours (Table) 06/26/22 13:00 Gram Stain - Preliminary Other - Other Wound Culture - Preliminary 06/25/22 22:12 Blood Culture - Preliminary Blood No Growth after 24 hours 06/26/22 13:00 Anaerobic Culture - Preliminary Vulva Assessment and Plan (1) Cellulitis, gluteal, right Current Visit: Yes Status: Acute Code(s): L03.317 - CELLULITIS OF BUTTOCK SNOMED Code(s): 68048398 (2) Vulvar cellulitis Current Visit: Yes Status: Acute Code(s): N76.2 - ACUTE VULVITIS SNOMED Code(s): 088607351 Plan: 1-Patient with right gluteal and right labial cellulitis in this patient mentions some improvement with the Bactrim and Keflex likely pointing towards possible staphylococcal infection with some of the worsening could be related to development of an abscess , patient is status post attempted aspirate followed by spontaneous drainage cultures obtained which are currently pending 2patient to continue the vancomycin and cefepime however in view of extensive infection will benefit from short course of IV antibiotics on Discharge questions Answered Time with Patient: Less than 30
[2022-06-27] MEDS ORDERED: VANCOMYCIN TROUGH DUE 1 EACH MISC MISCELLANE ONE (16:00)
[2022-06-27] MEDS: LACTATED RINGERS 1,000 ML IV SCH (16:11)
[2022-06-28] MEDS: HYDROcodone/APAP 5-325MG 1 EACH TAB PO PRN (02:11)
[2022-06-28] MEDS: VANCOMYCIN 1,500 MG in SODIUM CHLORIDE 0.9% 500 ML 500 ML IVPB SCH ×3 (02:11→18:06)
[2022-06-28] MEDS: CEFEPIME 2 GM in SODIUM CHLORIDE 0.9% 100 ML IVPB SCH ×3 (05:18→21:09)
[2022-06-28] MEDS: HYDROmorphone 1 MG/ML 1 ML SYRINGE IVP PRN (07:00)
[2022-06-28 07:36] LABS: African American GFR (CKD) >90 (>60 ml/min/1.73 sqM); Anion Gap 3 mmol/L; Blood Urea Nitrogen 7 mg/dL (7-17); Carbon Dioxide 27 mmol/L (22-30); Chloride 107 mmol/L (98-107); Glucose 87 mg/dL (74-99); Non-African American GFR(CKD) >90 (>60 ml/min/1.73 sqM); Potassium 5.2 mmol/L (3.5-5.1); Sodium 137 mmol/L (137-145)
[2022-06-28 08:17] LABS: C Reactive Protein 8.9 mg/dL (<1.0)
[2022-06-28] MEDS ORDERED: HYDROcodone/APAP 7.5-325MG 1 EACH TAB PO PRN ×2 (09:24→09:45)
--- NOTE | 2022-06-28 09:33 | P.PN ---
Subjective Progress Note Date: 06/28/22 Principal diagnosis: vulvar cellulitis Patient is still noting intense pain with getting up to the bathroom, and continues to require dilaudid. she states is is worse after urination. She continues to note spontaneous drainage under the labial swelling. she notes normal bowel and bladder function. she states ID did recommend PICC line placement with possible discharge. she denies f/c/n/v to me this am Objective - Vital Signs Vital signs: Vital Signs Temp 98.0 F 06/28/22 08:00 Pulse 74 06/28/22 08:00 Resp 16 06/28/22 08:00 BP 111/69 06/28/22 08:00 Pulse Ox 96 06/28/22 08:00 FiO2 Intake & Output 06/27/22 06/28/22 06/28/22 18:59 06:59 18:59 Intake Total 1680 Output Total 1 Balance 1680 -1 Intake: Intake, IV Titration 600 Amount Cefepime 2 gm In Sodium 100 Chloride 0.9% 100 ml @ 25 mls/hr IVPB Q8H [facility] Rx#: [id number] Vancomycin 1,500 mg In 500 Sodium Chloride 0.9% 500 ml 500 ml @ 167 mls/hr IVPB Q12H [facility] Rx#: [id number] Oral 1080 Output: Urine 1 Other: Voiding Method Toilet # Voids 3 2 - Constitutional General appearance: Present: no acute distress - Genitourinary Genitourinary Comment(s): right labia with erythema and swelling appreciated, drainage below is noted with purulent discharge. very tender to touch - Labs CBC & Chem 7: 06/27/22 05:47 06/28/22 06:31 Labs: Abnormal Lab Results - Last 24 Hours (Table) 06/27/22 06/28/22 Range/Units 05:47 06:31 Potassium 5.2 H (3.5-5.1) mmol/L Anion Gap 9.00 L (10.00-18.00) mmol/L BUN 6.8 L (9.0-27.0) mg/dL Creatinine 0.49 L (0.52-1.04) mg/dL BUN/Creatinine Ratio 10.94 L (12.00-20.00) Ratio Calcium 8.4 L 8.0 L (8.7-10.3) mg/dL C-Reactive Protein 15.10 H 8.9 H (0.00-0.80) mg/dL Microbiology - Last 24 Hours (Table) 06/27/22 12:45 Gram Stain - Preliminary Groin Wound Culture - Preliminary 06/25/22 22:12 Blood Culture - Preliminary Blood No Growth after 48 hours 06/27/22 12:45 Anaerobic Culture - Preliminary Groin 06/26/22 13:00 Gram Stain - Preliminary Other - Other Wound Culture - Preliminary Assessment and Plan (1) Cellulitis, gluteal, right Current Visit: Yes Status: Acute Code(s): L03.317 - CELLULITIS OF BUTTOCK SNOMED Code(s): 63036856 (2) Vulvar cellulitis Current Visit: Yes Status: Acute Code(s): N76.2 - ACUTE VULVITIS SNOMED Code(s): 665500796 Plan: Patient is noting some improvement with continued pain requiring dilaudid. I did increase her norco to 7.5, plan to monitor pain today. PICC line could be placed and we will work on oral pain management. She is in agreement of the plan. Thank you ID input
[2022-06-28] MEDS: HYDROcodone/APAP 7.5-325MG 1 EACH TAB PO PRN ×3 (10:00→21:07)
[2022-06-28 10:27] LABS: Basophils # (A) 0.08 X 10*3/uL (0.00-0.10); Eosinophils # (A) 0.24 X 10*3/uL (0.04-0.35); Eosinophils % (A) 2.9 %; HGB 13.2 g/dL (12.0-15.0); Immature Grans, Automated 0.4 %; Lymphocytes # (A) 2.02 X 10*3/uL (0.90-5.00); Lymphocytes % (A) 24.3 %; MCH 30.6 pg (27.0-32.0); MCHC 31.4 g/dL (32.0-37.0); MCV 97.2 fL (80.0-97.0); Mean Platelet Volume 10.3 fL (9.5-12.2); Monocytes # (A) 0.44 X 10*3/uL (0.20-1.00); Monocytes % (A) 5.3 %; NRBC Per 100 WBC 0 /100 WBCS (0.0-0.0); Neutrophils % (A) 66.1 %; Platelet Count 363 X 10*3/uL (140-440); RBC 4.32 X 10*6/uL (4.10-5.20); RDW 12.2 % (11.5-14.5); WBC 8.31 X 10*3/uL (4.50-10.00)
[2022-06-28] MEDS ORDERED: LIDOCAINE 1% PF 10 MG/ML (5 ML AMP) SQ ONE (11:10)
--- NOTE | 2022-06-28 11:48 | IR ---
PICC LINE PLACEMENT: HISTORY: Infection requiring long-term antibiotic therapy PROCEDURE: Ultrasound and fluoroscopic guidance of PICC line placement. COW TRIMMER: Dr. Villanueva COMPLICATIONS: None ANESTHESIA: 1% Lidocaine locally. FINDINGS/TECHNIQUE: The procedure was explained to the patient. The risks, complications, benefits and alternatives were discussed and any questions were answered. Informed consent was obtained. The patient was placed supine on the fluoroscopic table and prepped and draped in the usual sterile fash ion. Utilizing a 21 gauge needle and sonographic and fluoroscopic guidance, access in the right bas ilic vein was achieved and there is placement of a 0.018 guidewire. The vein is patent. A 4-F. lemus th was placed over the guidewire. The guidewire and dilator were removed and a 4-F. a single lumen P ICC line trimmed to 40 cm length was placed through the sheath with the tip at the cavoatrial junctio n. The sheath was removed, the catheter was flushed and sutured into position. The patient was stab le throughout the procedure and remained stable upon discharge from the Department of Radiology. The vein puncture was patent under ultrasound. A garza scale image was obtained to document patency of the vein punctured. The vein measured approximately 5 mm with a catheter to vein ratio of approximat federico 34%. All elements of the maximal barrier technique were utilized. FLUOROSCOPY TIME: 0.4 minutes IMPRESSION: Successful PICC line placement under ultrasound and fluoroscopic guidance.
[2022-06-28] MEDS: LACTATED RINGERS 1,000 ML IV SCH (13:32)
--- NOTE | 2022-06-28 15:42 | P.PN ---
Subjective Progress Note Date: 06/28/22 Principal diagnosis: Right gluteal and labial abscess Patient is a 36-year-old female presented to hospital with extensive pain to the right gluteal and lateral area has been diagnosed with the abscess patient did have an attempt at bedside aspirate on 06/26/2022, with no significant output patient subsequently did have spontaneous drainage. On today's evaluation that is 06/28/2022, the patient remains to be afebrile, the patient pain to the right labia as well as gluteal area has decreased in intensity and no significant drainage, patient denies having any chest pain or shortness of cough no abdominal pain or diarrhea Objective - Vital Signs Vital signs: Vital Signs Temp 98.0 F 06/28/22 08:00 Pulse 74 06/28/22 10:17 Resp 16 06/28/22 10:17 BP 111/69 06/28/22 08:00 Pulse Ox 96 06/28/22 08:00 FiO2 Intake & Output 06/27/22 06/28/22 06/28/22 18:59 06:59 18:59 Intake Total 1680 360 Output Total 1 Balance 1680 -1 360 Intake: Intake, IV Titration 600 Amount Cefepime 2 gm In Sodium 100 Chloride 0.9% 100 ml @ 25 mls/hr IVPB Q8H [facility] Rx#: [id number] Vancomycin 1,500 mg In 500 Sodium Chloride 0.9% 500 ml 500 ml @ 167 mls/hr IVPB Q12H [facility] Rx#: [id number] Oral 1080 360 Output: Urine 1 Other: Voiding Method Toilet Toilet # Voids 3 2 1 - Exam GENERAL DESCRIPTION: A middle-age female lying in bed in no distress RESPIRATORY SYSTEM: Unlabored breathing , decreased breath sounds at bases HEART: S1 S2 regular rate and rhythm , ABDOMEN: Soft , no tenderness : Right labial swelling has decreased she was noticed to have minimal drainage was cultured - Labs CBC & Chem 7: 06/28/22 06:31 06/28/22 06:31 Labs: Abnormal Lab Results - Last 24 Hours (Table) 06/28/22 06/28/22 Range/Units 06:31 06:31 MCV 97.2 H (80.0-97.0) fL MCHC 31.4 L (32.0-37.0) g/dL Potassium 5.2 H (3.5-5.1) mmol/L Creatinine 0.49 L (0.52-1.04) mg/dL Calcium 8.0 L (8.4-10.2) mg/dL C-Reactive Protein 8.9 H (<1.0) mg/dL Microbiology - Last 24 Hours (Table) 06/27/22 12:45 Gram Stain - Preliminary Groin Wound Culture - Preliminary 06/25/22 22:12 Blood Culture - Preliminary Blood No Growth after 48 hours 06/27/22 12:45 Anaerobic Culture - Preliminary Groin Assessment and Plan (1) Cellulitis, gluteal, right Current Visit: Yes Status: Acute Code(s): L03.317 - CELLULITIS OF BUTTOCK SNOMED Code(s): 35040746 (2) Vulvar cellulitis Current Visit: Yes Status: Acute Code(s): N76.2 - ACUTE VULVITIS SNOMED Code(s): 283726183 Plan: 1-Patient with right gluteal and right labial cellulitis in this patient mentions some improvement with the Bactrim and Keflex likely pointing towards possible staphylococcal infection with some of the worsening could be related to development of an abscess , patient is status post attempted aspirate followed by spontaneous drainage cultures obtained which are currently pending 2patient seemed to have shown clinical improvement and will continue the vancomycin and cefepime with the discharge antibiotics on the basis of final culture, questions concerned were answered Time with Patient: Less than 30
[2022-06-28] MEDS: KETOROLAC 15 MG/ML 1 ML VIAL IVP PRN (20:28)
[2022-06-29] MEDS: VANCOMYCIN 1,500 MG in SODIUM CHLORIDE 0.9% 500 ML 500 ML IVPB SCH ×2 (02:06→10:12)
[2022-06-29] MEDS: HYDROcodone/APAP 7.5-325MG 1 EACH TAB PO PRN ×2 (02:07→10:40)
[2022-06-29] MEDS: CEFEPIME 2 GM in SODIUM CHLORIDE 0.9% 100 ML IVPB SCH (05:22)
--- NOTE | 2022-06-29 07:49 | P.PN ---
Subjective Progress Note Date: 06/29/22 Principal diagnosis: vulvar cellulitis Patient is still noting intense pain with getting up to the bathroom, and continues to require dilaudid. she states is is worse after urination. She continues to note spontaneous drainage under the labial swelling. she notes normal bowel and bladder function. she states ID did recommend PICC line placement with possible discharge. she denies f/c/n/v to me this am Patient is feeling well this am, she states the labial swelling has decresaed significantly and she would like discharge home. she denies f/c/ she is using norco 7.5 for pain and hasnt required any dilaudid Objective - Vital Signs Vital signs: Vital Signs Temp 97.9 F 06/29/22 00:40 Pulse 66 06/29/22 00:40 Resp 16 06/29/22 00:40 BP 102/66 06/29/22 00:40 Pulse Ox 97 06/29/22 00:40 FiO2 Intake & Output 06/28/22 06/29/22 06/29/22 18:59 06:59 18:59 Intake Total 610 Balance 610 Intake: Oral 610 Other: Voiding Method Toilet # Voids 2 2 - Constitutional General appearance: Present: cooperative, no acute distress - Gastrointestinal General gastrointestinal: Present: soft - Genitourinary Genitourinary Comment(s): left vulvar erythema is decreased significant improvement is noted. - Labs CBC & Chem 7: 06/28/22 06:31 06/28/22 06:31 Labs: Abnormal Lab Results - Last 24 Hours (Table) 06/28/22 06/28/22 Range/Units 06:31 06:31 MCV 97.2 H (80.0-97.0) fL MCHC 31.4 L (32.0-37.0) g/dL C-Reactive Protein 8.9 H (<1.0) mg/dL Microbiology - Last 24 Hours (Table) 06/25/22 22:12 Blood Culture - Preliminary Blood No Growth after 72 hours 06/27/22 12:45 Gram Stain - Preliminary Groin Wound Culture - Preliminary 06/26/22 13:00 Anaerobic Culture - Preliminary Vulva 06/26/22 13:00 Gram Stain - Final Other - Other Wound Culture - Final Assessment and Plan (1) Cellulitis, gluteal, right Current Visit: Yes Status: Acute Code(s): L03.317 - CELLULITIS OF BUTTOCK SNOMED Code(s): 26641648 (2) Vulvar cellulitis Current Visit: Yes Status: Acute Code(s): N76.2 - ACUTE VULVITIS SNOMED Code(s): 371515309 Plan: Will plan discharge today, with norco 78.5 for pain control at home. She is to follow up next week with myself. She is set up with home nursing for continued IV antibiotics through her PICC line.
[2022-06-29 08:17] VITALS: BP 136/96; PULSE 71; RESP 17; TEMP 97.7
[2022-06-29 08:28] LABS: African American GFR (CKD) >90 (>60 ml/min/1.73 sqM); Non-African American GFR(CKD) >90 (>60 ml/min/1.73 sqM)
[2022-06-29] MEDS ORDERED: SERTRALINE 50 MG TAB PO SCH (09:00)
--- NOTE | 2022-06-29 13:25 | P.PN ---
Subjective Progress Note Date: 06/29/22 Principal diagnosis: Right gluteal and labial abscess Patient is a 36-year-old female presented to hospital with extensive pain to the right gluteal and lateral area has been diagnosed with the abscess patient did have an attempt at bedside aspirate on 06/26/2022, with no significant output patient subsequently did have spontaneous drainage. On today's evaluation that is 06/29/2022, the patient continues to be afebrile, the patient pain to the right labia as well as gluteal area has decreased in intensity and no further drainage, patient denies having any chest pain or shortness of cough no abdominal pain or diarrhea, feeling better and wants to go home Objective - Vital Signs Vital signs: Vital Signs Temp 97.7 F 06/29/22 08:00 Pulse 71 06/29/22 08:00 Resp 17 06/29/22 08:00 BP 136/96 06/29/22 08:00 Pulse Ox 97 06/29/22 08:00 FiO2 Intake & Output 06/28/22 06/29/22 06/29/22 18:59 06:59 18:59 Intake Total 610 Balance 610 Intake: Oral 610 Other: Voiding Method Toilet Toilet # Voids 2 2 - Exam GENERAL DESCRIPTION: A middle-age female lying in bed in no distress RESPIRATORY SYSTEM: Unlabored breathing , decreased breath sounds at bases HEART: S1 S2 regular rate and rhythm , ABDOMEN: Soft , no tenderness : Right labial swelling has decreased and not as tender - Labs CBC & Chem 7: 06/28/22 06:31 06/29/22 07:30 Labs: Microbiology - Last 24 Hours (Table) 06/25/22 22:12 Blood Culture - Preliminary Blood No Growth after 72 hours 06/27/22 12:45 Gram Stain - Preliminary Groin Wound Culture - Preliminary 06/26/22 13:00 Anaerobic Culture - Preliminary Vulva 06/26/22 13:00 Gram Stain - Final Other - Other Wound Culture - Final Assessment and Plan (1) Cellulitis, gluteal, right Current Visit: Yes Status: Acute Code(s): L03.317 - CELLULITIS OF BUTTOCK SNOMED Code(s): 95690703 (2) Vulvar cellulitis Current Visit: Yes Status: Acute Code(s): N76.2 - ACUTE VULVITIS SNOMED Code(s): 541213713 Plan: 1-Patient with right gluteal and right labial cellulitis in this patient mentions some improvement with the Bactrim and Keflex likely pointing towards possible staphylococcal infection with some of the worsening could be related to development of an abscess , patient is status post attempted aspirate followed by spontaneous drainage cultures obtained which are negative 2patient seemed to have shown clinical improvement and culture have been negative for any resistant pathogen, we will go ahead and discontinue cefepime and vancomycin consider Rocephin 2 g daily for about a week to 10 days in outpatient setting and close outpatient follow-up questions concerned were answered Time with Patient: Less than 30
== END 2022-06-29 13:30 | disposition home health service (06) | DRG 746 ==
LOC: 4FBP 16:11 → 4SSUR 18:30
PROVIDERS: ADMIT Obstetrics & Gynecology; ATTEND Obstetrics & Gynecology
PROC: 0U9MXZX Drainage of Vulva, External Approach, Diagnostic (ICD-10-PCS; principal; 2022-06-26)
PROC: 02HV33Z Insertion of Infusion Device into Superior Vena Cava, Percutaneous Approach (ICD-10-PCS; 2022-06-28)
DX: N76.4 Abscess of vulva (principal); L02.31 Cutaneous abscess of buttock; L03.317 Cellulitis of buttock; F31.9 Bipolar disorder, unspecified; Z28.310 Unvaccinated for COVID-19; N76.2 Acute vulvitis; F41.9 Anxiety disorder, unspecified; F43.10 Post-traumatic stress disorder, unspecified; Z79.899 Other long term (current) drug therapy; Z86.16 Personal history of COVID-19; Z86.79 Personal history of other diseases of the circulatory system; Z87.891 Personal history of nicotine dependence; Z91.018 Allergy to other foods
CPT/HCPCS: 36573; 80048; 80053; 80202; 82565; 85025; 86140; 87040; 87070; 87075; 87205